=== PATIENT | female | born 1965 | race Caucasian/White ===

== ENCOUNTER 2017-02-17 21:45 | Emergency (ER) | payer MEDICAID ==
[~2017-02-17] VITALS: Ht 162.6 cm; Wt 62.6 kg
[2017-02-17] MEDS ORDERED: ATIVAN2 MG ORAL (21:53)
[2017-02-17 21:57] VITALS: BP 161/98
[2017-02-17] MEDS ORDERED: Ketorolac 60mg Inj IM ONE (22:15)
[2017-02-17] MEDS ORDERED: Norco 5mg/325mg tab ORAL ONE (22:15)
--- NOTE | 2017-02-17 22:30 | Emergency Room Report ---
History of Present Illness General Chief Complaint: Pain Source: Patient Present Illness HPI The patient walked to the emergency department to seek help with treating a severe headache. It's been going on for 3 days. She states she does not have medication to help her at this time. Her doctor prescribed migraine medication but it hasn't helped in the past. She denies any fevers, nausea, vomiting. There is no change in her vision. The pain is 9-10 out of 10. She feels it in the forehead and also in the back of her head. It radiates down her back and she feels tension and tightness in her neck and upper back. Is not the worse headache that she's ever had. She's had headaches like this before. She's come to the emergency department to seek some sort of treatment. She denies any blood thinners, trauma, weakness or numbness. She started to complain about some problems her feet but then decided not to. She refused to talk more about the problem with her feet. Allergies: Coded Allergies: No Known Allergies (Unverified , 02/17/17) Patient History Past Medical History: see triage record Social History: Reports: smoking Social History Narrative here with service dog Now: No : 1 Para: 0 Reviewed Nursing Documentation: PMH: Agreed, PSxH: Agreed Nursing Documentation-PMH Hx Hypertension: Yes - hyperlipidemia History Of Psychiatric Problem: Yes - Anxiety Review of Systems All Other Systems: negative except mentioned in HPI Physical Exam Vital Signs Date Time Temp Pulse Resp B/P Pulse Ox O2 Delivery O2 Flow Rate FiO2 02/17/17 21:48 90 18 161/98 99 Room Air 02/17/17 21:57 97.8 Sp02 EP Interpretation: reviewed, normal General Appearance: well appearing, no apparent distress Head: normocephalic, atraumatic Eyes: bilateral eye EOMI, bilateral eye PERRL, bilateral eye normal inspection ENT: hearing grossly normal, normal voice Neck: full range of motion, supple, other - some muscle stiffness Respiratory: no respiratory distress, speaking full sentences Cardiovascular #1: regular rate, rhythm Gastrointestinal: normal inspection, non tender Musculoskeletal: back normal, digits/nails normal, gait/station normal, normal range of motion Neurologic: alert, oriented x3, core blower III-XII nml as tested, motor strength/tone normal, DTRs symmetric, sensory intact, normal gait, speech normal Psychiatric: mood/affect normal Skin: no rash - venous disease Medical Decision Making Diagnostic Impression: Primary Impression: Headache Qualified Codes: R51 - Headache ER Course Patient presents with a severe headache but not the worst in her life. There are no red flag signs or symptoms. Differential includes tension, migraine, headache and opiate seeking behavior. Neurologic exam is unremarkable at this time and she does have neck spasm. The patient be treated with analgesia. She was offered a Toradol shot and declined. In addition to that we offered her oral Almira. Because patient declines the shot of Toradol, Motrin was given. As this patient was being discharged she requested a shot. She was told that because she had declined a shot and given Motrin we cannot give her a shot at this time. Check [facility] - no listings. Patient stable for outpatient observation and treatment. Last Vital Signs Date Time Temp Pulse Resp B/P Pulse Ox O2 Delivery O2 Flow Rate FiO2 02/17/17 22:44 97.8 78 20 154/89 99 Room Air Status: improved Disposition: HOME, SELF-CARE Condition: Improved Scripts Ibuprofen* (MOTRIN*) 600 Mg Tablet 600 MG ORAL Q6H Y for For Pain, #20 TAB Prov: Manuel Shi M.D. 02/17/17 Acetamin/Butalbital/Caffeine* (FIORICET*) 1 Ea Tab 1 TAB ORAL Q6H, #10 TAB 0 Refills Prov: Manuel Shi M.D. 02/17/17 Manuel Shi M.D. Feb 17, 2017 22:30
[2017-02-17] MEDS ORDERED: IBUPROFEN600 MG ORAL (22:33)
[2017-02-17] MEDS ORDERED: FIORICET1 EA ORAL (22:33)
[2017-02-17 22:42] VITALS: BP 154/89
[2017-02-17 22:44] VITALS: BP 154/89
== END 2017-02-17 22:45 | disposition home or self-care (01) ==
LOC: EMR 22:07
DX: R51 Headache (principal); E78.5 Hyperlipidemia, unspecified; F41.9 Anxiety disorder, unspecified; F17.200 Nicotine dependence, unspecified, uncomplicated
CPT/HCPCS: 99284